=== PATIENT | male | born 2000 | race Caucasian/White ===

== ENCOUNTER 2022-08-15 13:56 | Emergency (ER) | payer OTHER ==
[~2022-08-15] VITALS: Ht 175.3 cm; Wt 78.2 kg
[~2022-08-15 13:56] MED LIST: DAYLIQ3 PO
[2022-08-15 19:25] LABS: BASO % 0.5 % (0.0-1.0); EOS % 0.4 % (0.0-3.0); HEMATOCRIT 48.3 % (42.0-52.0); HEMOGLOBIN 16.9 g/dl (13.5-17.5); LYMPH # 1.3 10^3/uL (1.5-5.0); LYMPH % 16.5 % (24.0-44.0); MEAN CORPUSCULAR HEMOGLOBIN 32.3 pg (27.0-33.0); MEAN CORPUSCULAR VOLUME 92.2 fl (80.0-96.0); MONO # 0.4 10^3/uL (0.0-0.8); MONO % 5.1 % (2.0-8.0); NEUTROPHILS # 6.1 10^3/uL (1.5-8.5); NEUTROPHILS % 77.4 % (36.0-66.0); PLATELET COUNT, AUTOMATED 206 10^3/uL (150-450); RED BLOOD COUNT 5.24 10^6/uL (4.30-6.10); WHITE BLOOD COUNT 7.9 10^3/uL (4.0-10.0)
[2022-08-15 19:38] LABS: ERYTHROCYTE SEDIMENTATION RATE 4 mm/hr (0-15)
[2022-08-15 19:46] LABS: LIPASE 32 U/L (12-53)
[2022-08-15 19:47] LABS: C REACTIVE PROTEIN QUANTITATIV < 0.40 MG/DL (<1.0)
[2022-08-15 19:48] LABS: BILIRUBIN,DIRECT 0.5 MG/DL (<0.4)
[2022-08-15 19:49] LABS: ALBUMIN 4.2 G/DL (3.2-5.2); ALKALINE PHOSPHATASE 70 U/L (46-116); ALT/SGPT 47 U/L (7.0-40); AST/SGOT 36 U/L (<34); BILIRUBIN,TOTAL 1.5 MG/DL (0.3-1.2); BLOOD UREA NITROGEN 12 MG/DL (9-23); CALCIUM LEVEL 9.4 MG/DL (8.5-10.1); CARBON DIOXIDE LEVEL 26 MMOL/L (20-31); CHLORIDE LEVEL 102 MMOL/L (98-107); CK-MB VALUE MASS < 1.0 NG/ML (<3.6); GLOMERULAR FILTRATION RATE > 60.0 (>60); GLUCOSE, FASTING 97 MG/DL (60-100); POTASSIUM SERUM 4.3 MMOL/L (3.5-5.1); SODIUM LEVEL 138 MMOL/L (136-145); TOTAL PROTEIN 7.7 G/DL (5.7-8.2)
[2022-08-15 19:52] LABS: THYROID STIMULATING HORMONE 0.821 uIU/ML (0.55-4.78)
[2022-08-15 19:54] LABS: FREE T4 1.19 NG/DL (0.89-1.76)
[2022-08-15 19:56] LABS: CPK CREATINE PHOSPHOKINASE 449 U/L (46-171); MB/CK RELATIVE INDEX 0.22 (< OR =4)
[2022-08-15 21:37] LABS: GC DNA AMPLIFICATION NEGATIVE (NEGATIVE)
[2022-08-15 22:36] VITALS: BP 150/74
== END 2022-08-15 22:38 | disposition home or self-care (01) ==
LOC: M ED 13:56
DX: R07.89 Other chest pain (principal); R00.2 Palpitations; R74.8 Abnormal levels of other serum enzymes; N28.9 Disorder of kidney and ureter, unspecified